=== PATIENT | female | born 1970 | race Caucasian/White ===

== ENCOUNTER 2024-01-10 13:10 | Emergency (ER) | payer BC, SELFPAY ==
[2024-01-10 13:17] VITALS: BP 140/94
[2024-01-10 14:12] VITALS: BMI 53.3
--- NOTE | 2024-01-10 14:16 | ED.GENMED ---
History of Present Illness
General
Chief Complaint: Breathing Problem
Source: patient
Exam Limitations: none
Time Seen by Provider: 01/10/24 13:45
History of Present Illness
History of Present Illness:
53-year-old female history of asthma and hypertension presents with fatigue sinus congestion chest tightness. She tested positive for COVID last evening. She notes that her oxygen saturations at home are 92%. She has never had COVID in the past
but she is vaccinated. She denies any recent travel or surgery. No leg swelling or calf pain. No other complaints.
Past History
Past History
ED Past Medical History: Asthma, HTN, Hypercholesterolemia, Psychiatric (anxiety) and Other (chronic left thoracic back pain, eczema)
ED Past Surgical History: None
Patient has exhibited threatening behavior?: No
Social History
Tobacco: Non-smoker
Personal: Single
Living: with family
Employment: Employed
Family History
Family History: Other (Noncontributory)
Phy Exam
Physical Exam
Physical Exam:
General: Well-appearing female no acute respiratory distress
HEENT: Normocephalic atraumatic
Heart: Regular rate and rhythm no murmurs
Lungs: Clear no wheeze
Extremities: No cyanosis or edema
Skin: Warm no rash
Scores
Heart Failure Risk
Heart Failure Risk Score: Not Applicable
Course
Orders/Labs/Results
Orders:
Orders
01/10/24 13:16
Electrocardiogram (*1) Urgent
Reason for Study: Shortness of Breath
EKG- Treatment ONCE
01/10/24 13:53
CR Chest - 2 Views Urgent
Comment:
Reason For Exam: cough, sob
Vital Signs
Initial and Last Documented VS:
Initial Vital Signs
Temp Pulse Resp BP Pulse Ox
99.9 F 86 20 140/94 97
01/10/24 13:17 01/10/24 13:17 01/10/24 13:17 01/10/24 13:17 01/10/24 13:17
Last Documented Vital Signs
Temp Pulse Resp BP Pulse Ox
99.9 F 73 18 140/94 97
01/10/24 13:17 01/10/24 14:14 01/10/24 14:14 01/10/24 13:17 01/10/24 14:14
MDM/Problems Addressed
Differential Diagnosis Includes:
Increased work of breathing with recent diagnosis of COVID. She is 97% on room air in the room. No respiratory distress currently. Will obtain chest x-ray.
*Critical Care Note
Total Time (30-74mins, 75-104mins- exclusive of procedures): Not Applicable
Update Note
Update Note:
Chest x-ray clear patient in no respiratory distress vital signs remained stable. Recommended supportive care. Will send patient home with a prescription for nebulizer solution to use if needed.
EKG reviewed shows sinus rhythm without ischemic changes
ED Attending Note
-
Portions of this chart may have been created with voice recognition software.� Occasional wrong word or��sound alike� substitutions may have occurred due to the inherent limitations of voice recognition software.
Discharge Plan
Departure
Patient Disposition: Home (Routine Discharge)
Date of Disposition: 01/10/24
Time of Disposition: 15:55
Patient with high blood pressure during this ER visit?: No
Discharge Problem:
COVID-19
Instructions: Coronavirus Home Quarantine
Prescriptions:
New
albuterol sulfate 2.5 mg /3 mL (0.083 %) solution for nebulization
2.5 mg inhalation QID PRN (Reason: shortness of breath or wheezing) Qty: 75 0RF
No Action
fexofenadine [Ursula] 180 MG tablet
180 mg PO DAILY
atenolol 50 MG tablet
50 mg PO DAILY
nabumetone 750 MG tablet
1 tab PO DAILY PRN (Reason: back pain)
prednisone 20 MG tablet
40 mg PO DAILY Qty: 10 0RF
Rx Instructions:
Take with food.
prednisone 20 MG tablet
40 mg PO DAILY Qty: 5 0RF
cephalexin 500 MG capsule
500 mg PO BID Qty: 20 0RF
prednisone 20 mg tablet
20 mg PO BID Qty: 14 0RF
lisinopril 5 mg tablet
5 mg PO DAILY Qty: 30 0RF
albuterol sulfate 90 mcg/actuation Hfa Aerosol Inhaler
2 puff INHALATION 6XD PRN (Reason: sob)
escitalopram oxalate [Lexapro] 5 mg Tablet
5 mg PO DAILY
Zyrtec 10 mg Capsule
10 mg PO DAILY
Referrals:
Roby Mohan DO [Family Provider] -
Activity Restrictions/Additional Instructions:
Rest. Drink plenty of fluids. Use ibuprofen or Tylenol for fever control. Use nebulizer if needed for tightness in chest or shortness of breath
Interventions
Interventions:
*Risk Screen - Suicide Last Done: 01/10/24 13:17
*General Assessment Last Done: 01/10/24 13:17
*Neglect/Abuse Screening Last Done: 01/10/24 13:17
ED- Fall Risk Assessment Last Done: 01/10/24 14:14
*ED COVID-19 Vaccine History Last Done: 01/10/24 13:17
ED- Cardiac Assessment Last Done: 01/10/24 14:14
ED- Pulmonary Assessment Last Done: 01/10/24 14:14
Discharge Date and Time
Print Language: GEORGIAN
== END 2024-01-10 16:20 | disposition home or self-care (01) ==
LOC: EMR 13:10
PROVIDERS: EMERGENCY PHYSICIAN Student in an Organized Health Care Education/Training Program; FAMILY PHYSICIAN Family Medicine
DX: U07.1 COVID-19 (principal); J45.909 Unspecified asthma, uncomplicated; I10 Essential (primary) hypertension; F41.9 Anxiety disorder, unspecified; E78.00 Pure hypercholesterolemia, unspecified
CPT/HCPCS: 99283; 71046; 93005

== ENCOUNTER 2024-05-03 06:05 | Outpatient (RCR) | payer OTHER, SELFPAY | END 2024-05-03 23:59 | disposition home or self-care (01) | LOC: RST 06:05 | PROVIDERS: ATTENDING PHYSICIAN Otolaryngology | DX: J38.3 Other diseases of vocal cords (principal); R49.8 Other voice and resonance disorders; Z86.16 Personal history of COVID-19; Z98.890 Other specified postprocedural states | CPT/HCPCS: 92507; 92524 ==

== ENCOUNTER 2024-05-31 06:47 | Outpatient (RCR) | payer OTHER, SELFPAY | END 2024-05-31 23:59 | disposition home or self-care (01) | LOC: RST 06:47 | PROVIDERS: ATTENDING PHYSICIAN Otolaryngology | DX: J38.3 Other diseases of vocal cords (principal); R49.8 Other voice and resonance disorders | CPT/HCPCS: 92507 ==

== ENCOUNTER 2024-07-04 09:30 | Outpatient (RCR) | payer OTHER, SELFPAY | END 2024-07-04 15:10 | disposition home or self-care (01) | LOC: RST 09:30 | PROVIDERS: ATTENDING PHYSICIAN Otolaryngology | DX: J38.3 Other diseases of vocal cords (principal); R49.8 Other voice and resonance disorders | CPT/HCPCS: 92507 ==

== ENCOUNTER → 2024-08-04 12:23 | Outpatient (REF) | payer OTHER, SELFPAY | LOC: HWWDC 12:23 | PROVIDERS: ATTENDING PHYSICIAN Obstetrics & Gynecology; FAMILY PHYSICIAN Family Medicine | DX: Z12.31 Encounter for screening mammogram for malignant neoplasm of breast (principal) | CPT/HCPCS: 77063; 77067 ==

== ENCOUNTER → 2024-10-05 07:58 | Outpatient (REF) | payer OTHER, SELFPAY | LOC: HWRAD 07:58 | PROVIDERS: ATTENDING PHYSICIAN Family Medicine | DX: Z13.820 Encounter for screening for osteoporosis (principal); K90.0 Celiac disease | CPT/HCPCS: 77080 ==

== ENCOUNTER → 2024-11-01 13:11 | Outpatient (REF) | payer OTHER, SELFPAY | LOC: HWRAD 13:11 | PROVIDERS: ATTENDING PHYSICIAN Family Medicine | DX: M54.50 Low back pain, unspecified (principal); M25.551 Pain in right hip; M25.552 Pain in left hip | CPT/HCPCS: 72110; 73523 ==

== ENCOUNTER → 2025-01-20 09:44 | Outpatient (REF) | payer OTHER, SELFPAY | LOC: HWRAD 09:44 | PROVIDERS: ATTENDING PHYSICIAN Internal Medicine Rheumatology; FAMILY PHYSICIAN Family Medicine | DX: M54.2 Cervicalgia (principal) | CPT/HCPCS: 72052 ==

== ENCOUNTER → 2025-01-24 13:24 | Outpatient (REF) | payer OTHER, SELFPAY | LOC: HWRAD 13:24 | PROVIDERS: ATTENDING PHYSICIAN Obstetrics & Gynecology; FAMILY PHYSICIAN Family Medicine | DX: N92.4 Excessive bleeding in the premenopausal period (principal) | CPT/HCPCS: 76830; 76856 ==

== ENCOUNTER → 2025-04-24 10:18 | Outpatient (REF) | payer OTHER, SELFPAY | LOC: DHSLP 10:18 | PROVIDERS: ATTENDING PHYSICIAN Internal Medicine; FAMILY PHYSICIAN Family Medicine | DX: G47.33 Obstructive sleep apnea (adult) (pediatric) (principal) | CPT/HCPCS: 95800 ==